=== PATIENT | female | born 1935 | race Caucasian/White ===

== ENCOUNTER 2023-12-07 11:48 | Emergency (ER) | payer OTHER, SELFPAY ==
[2023-12-07 11:52] VITALS: BP 138/101
[2023-12-07 12:31] LABS: % Basophils 0.8 % (0-2); % Eosinophils 3.3 % (0-6); % Immature Granulocytes 0.3 % (0-0.5); % Lymphocytes 16.8 % (20.5-51.1); % Monocytes 11.5 % (1.7-9.3); % Neutrophils 67.3 % (42.2-75.2); Absolute Basophils 0.1 10^3/uL (0-0.2); Absolute Eosinophils 0.3 10^3/uL (0-0.7); Absolute Lymphocytes 1.3 10^3/uL (1.2-3.4); Absolute Monocytes 0.9 10^3/uL (0.1-0.6); Hematocrit 40.4 % (37.0-47.0); Mean Corp Hgb Conc. 32.2 g/dL (33.0-37.0); Mean Corpuscular Hgb 29.6 pg (27.0-31.0); Mean Platelet Volume 10.3 fL (7.4-10.4); Nucleated Red Blood Cells % 0 %; Platelet Count 245 10^3/uL (130-400); Red Blood Cell Count 4.39 10^6/uL (4.20-5.40); Red Cell Dist. Width 15.2 % (11.5-14.5); White Blood Cell Count 7.5 10^3/uL (4.8-10.8)
[2023-12-07 12:44] LABS: ALT (SGPT) 18 U/L (0-35); AST (SGOT) 32 U/L (14-36); Albumin 4.1 g/dl (3.5-5.0); Alkaline Phosphatase 85 U/L (38-126); Blood Urea Nitrogen 23 mg/dl (7-17); Calcium 9.4 mg/dl (8.4-10.2); Carbon Dioxide 31 mmol/L (22-30); Chloride 99 mmol/L (98-107); Glucose 86 mg/dl (70-99); INR 1.26; PT 15.9 Sec (11.4-14.6); Potassium 3.6 mmol/L (3.5-5.1); Sodium 138 mmol/L (135-145); Total Bilirubin 0.7 mg/dl (0.2-1.3); Total Protein 7.5 g/dl (6.3-8.2); eGFR 33.73
[2023-12-07 12:54] LABS: Troponin I < 0.012 ng/ml
[2023-12-07 13:53] VITALS: BMI 28.1
[2023-12-07 13:56] VITALS: BP 188/82
--- NOTE | 2023-12-07 14:00 | ED.GENMED ---
History of Present Illness
General
Chief Complaint: Chest Pain
Source: patient and family
Exam Limitations: none
Time Seen by Provider: 12/07/23 13:53
Travel History
Have you had any contact with someone who has COVID-19?: No
Do you have any symptoms of coronavirus? Fever > 100 degrees, chills, cough, shortness of breath, sore throat, loss of taste or smell, muscle aches, or headache?: No
History of Present Illness
History of Present Illness:
See MDM
Past History
Past History
ED Past Medical History: Arrthythmia (Atrial fibrillation), CAD, HTN, Hypercholesterolemia and Hypothyroidism
ED Past Surgical History: Cardiac (Past cardiac catheterization with no stenting 2000, 2014)
Social History
Tobacco: Non-smoker
Alcohol: None
Drug: None
Personal:
Living: with family
Employment: Retired
Family History
Family History: Other
Phy Exam
Physical Exam
Physical Exam:
See MDM
Scores
Heart Score for Chest Pain Patients
STEMI patient?: No
History: Slightly or Non-Suspicious
ECG: Normal
Age: >/= 65 years
Risk Factors: 1 or 2 Risk Factors
Troponin: </= Normal Limit
Heart Score for Chest Pain Patients: 3
Heart Score Risk: 2.5% MACE over next 6 weeks
Course
Orders/Labs/Results
Orders:
Orders
12/07/23 11:57
Electrocardiogram (*1) Urgent
Reason for Study: Chest Pain
EKG- Treatment ONCE
12/07/23 12:12
Complete Blood Count/With Diff Urgent
Comprehensive Metabolic Panel Urgent
Prothrombin Time Urgent
Troponin I Urgent
12/07/23 13:59
Tramadol HCl [Ultram] 25 mg PO NOW STA
CR Chest - 2 Views Urgent
Comment:
Reason For Exam: CP, SOB
CR Shoulder - Left Min 2 View* Urgent
Reason For Exam: Left shoulder pain
Abnormal Lab Results
12/07/23
12:12
MCHC 32.2 L g/dL
(33.0-37.0)
RDW 15.2 H %
(11.5-14.5)
Absolute Monos (auto) 0.9 H 10^3/uL
(0.1-0.6)
Lymphocytes % 16.8 L %
(20.5-51.1)
Monocytes % 11.5 H %
(1.7-9.3)
PT 15.9 H Sec
(11.4-14.6)
Carbon Dioxide 31 H mmol/L
(22-30)
BUN 23 H mg/dl
(7-17)
Creatinine 1.5 H mg/dL
(0.6-1.0)
12/07/23 12:12
12/07/23 12:12
Vital Signs
Initial and Last Documented VS:
Initial Vital Signs
Temp Pulse Resp BP Pulse Ox
97.8 F 77 18 138/101 96
12/07/23 11:52 12/07/23 11:52 12/07/23 11:52 12/07/23 11:52 12/07/23 11:52
Last Documented Vital Signs
Temp Pulse Resp BP Pulse Ox
97.8 F 70 17 188/82 99
12/07/23 11:52 12/07/23 14:30 12/07/23 14:30 12/07/23 13:56 12/07/23 14:30
MDM/Problems Addressed
Differential Diagnosis Includes:
HPI and MDM Narrative:
88-year-old female presenting with intermittent shortness of breath and chest discomfort since yesterday. Patient noted that her blood pressure was elevated. She localizes her symptoms to her left shoulder. Patient states symptoms are worse with
movement of the shoulder. Patient denies pain with exertion.
On exam, patient is well-appearing nontoxic. Pain is localized to palpation and movement of left deltoid. Will obtain chest x-ray and shoulder x-ray. EKG is unchanged from prior. Given duration of symptoms, troponin is negative indicating ACS
less likely. Will give dose of tramadol and continue to reassess blood pressure and symptoms
Physical exam
General: Well appearing and non-toxic
HEENT: protecting airway
Neck: appears supple
CV: No evidence of cyanosis. Regular rate and rhythm
Resp: No accessory muscle use. Lungs clear
Abd: Non-distended
Extremities: No deformities. Mild tenderness to palpation of left deltoid. Distal extremity neurovascularly intact
Neuro: alert
Psych: Normal affect
Skin: Intact
Problems Addressed including Acute and Chronic Conditions affecting care:
1. Chest pain
Acuity: acute
Prognosis: stable
Details: EKG unchanged from prior. Troponin negative.
2. Shoulder pain
Acuity: acute
Prognosis: stable
Details: likely musculoskeletal. Will obtain x-ray
3. Hypertension
Acuity: acute
Prognosis: stable
Details: Daughter at bedside states that she used to be on Coreg 25 mg twice daily but they switched it all the way down to 6.25 mg twice daily due to symptoms. We discussed increasing to 12.5 at nighttime dosing her blood pressure with PCP and
channel lip stiffener insoles
Updates
After tramadol, patient states she is feeling much better. In regards to her blood pressure, will have her double her Coreg at nighttime until this can be reevaluated by PCP channel lip stiffener insoles. Will ambulate to ensure symptoms are not worse with
exertion. Both patient and daughter feel comfortable going home x-ray independently reviewed:
Differential Diagnosis (but not limited to): Noncardiac chest pain, shoulder strain, pneumothorax
Testing considered:
Drug therapy (if applicable): OTC meds, please see d/c instruction regarding Rx drugs
Amount and/or Complexity of Data Reviewed
Clinical info obtained from: Patient
External data reviewed: N/A
Labs I independently reviewed (but not limited to): Troponin normal
Radiology: X-ray independently reviewed: Chest x-ray unchanged prior. No shoulder fracture or dislocation noted
Pulse Ox: not hypoxic
EKG independently reviewed: Paced rhythm, left axis, no STEMI
Information Clerk: N/A
Critical Care: N/A
Risk of Complication:
Social Determinants of health: Good social support
Discussed with other providers: N/A
Escalation of Care includes Admit/Obs: After being observed in the Emergency Department, pt stable for discharge.
Occasional wrong word or 'sound a like' substitutions may have occurred due to the inherent limitations of voice recognition software. Read the chart carefully and recognize, using context, where substitutions have occurred.
*Critical Care Note
Total Time (30-74mins, 75-104mins- exclusive of procedures): Not Applicable
ED Attending Note
-
Portions of this chart may have been created with voice recognition software.� Occasional wrong word or��sound alike� substitutions may have occurred due to the inherent limitations of voice recognition software.
Discharge Plan
Departure
Patient Disposition: Home (Routine Discharge)
Date of Disposition: 12/07/23
Time of Disposition: 15:48
Patient with high blood pressure during this ER visit?: Yes
Discharge Problem:
Anterior shoulder pain
Instructions: Shoulder Pain ED, BLOOD PRESSURE
Prescriptions:
New
tramadol 50 mg tablet
25 mg PO BID PRN (Reason: pain) Qty: 10 0RF
No Action
pantoprazole 40 MG tablet,delayed release (DR/EC)
40 mg PO DAILY Qty: 30 11RF
atorvastatin 40 MG tablet
40 mg PO HS
acetaminophen [Tylenol Extra Strength] 500 MG tablet
1,000 mg PO Q4HPRN PRN (Reason: mild pain)
apixaban [Eliquis] 2.5 MG tablet
2.5 mg PO BID
amiodarone [Pacerone] 200 MG tablet
400 mg PO DAILY
levothyroxine 50 MCG tablet
50 mcg PO DAILY
calcitriol [Rocaltrol] 0.5 MCG capsule
0.5 mcg PO DAILY
carvedilol [Coreg] 25 MG tablet
25 mg PO BID Qty: 0 0RF
furosemide 20 MG tablet
40 mg PO BID Qty: 0 0RF
Referrals:
Alesha Fuentes MD [Family Provider] -
Activity Restrictions/Additional Instructions:
Please return for any worsening symptoms.
You may return at any time if you have further concerns.
Please follow up with your primary care doctor at the first available appointment, preferably this week. Please discus your symptoms and your uncontrolled blood pressure. Until you are further evaluated by your doctor, please double your Coreg at
nighttime. If you develop weakness and dizziness due to increased blood pressure medicine, please go back to your original dosing.
You were given a prescription for narcotics. If you require this pain medicine, please take a daily [id number] stool softener to avoid constipation.
Thank you for choosing [facility].
Interventions
Interventions:
*Risk Screen - Suicide Last Done: 12/07/23 11:52
*General Assessment Last Done: 12/07/23 11:52
*Neglect/Abuse Screening Last Done: 12/07/23 11:52
ED- Fall Risk Assessment Last Done: 12/07/23 13:57
*ED COVID-19 Vaccine History Last Done: 12/07/23 13:50
ED- Cardiac Assessment Last Done: 12/07/23 13:57
ED- Neurological Assessment Last Done: 12/07/23 13:57
ED- Pulmonary Assessment Last Done: 12/07/23 13:57
[2023-12-07] MEDS: ULTRAM 25 MG PO (14:04)
== END 2023-12-07 16:30 | disposition home or self-care (01) ==
LOC: EMR 11:48
PROVIDERS: Emergency Medicine; EMERGENCY PHYSICIAN Student in an Organized Health Care Education/Training Program; FAMILY PHYSICIAN Internal Medicine
DX: M25.512 Pain in left shoulder (principal); R07.89 Other chest pain; I48.91 Unspecified atrial fibrillation; I25.10 Atherosclerotic heart disease of native coronary artery without angina pectoris; I10 Essential (primary) hypertension; E78.00 Pure hypercholesterolemia, unspecified; E03.9 Hypothyroidism, unspecified
CPT/HCPCS: 99283; 71046; 73030; 80053; 84484; 85025; 85610; 93005

== ENCOUNTER 2024-04-26 10:42 | Day surgery (SDC) | payer OTHER, SELFPAY ==
[2024-04-26 11:34] VITALS: BMI 27.2
[2024-04-26 11:44] VITALS: BP 172/96
[2024-04-26 11:44] LABS: Hematocrit 38.4 % (37.0-47.0); Hemoglobin 12.8 g/dL (12.0-16.0); Mean Corp Hgb Conc. 33.3 g/dL (33.0-37.0); Mean Corpuscular Hgb 29.9 pg (27.0-31.0); Mean Corpuscular Volume 89.7 fL (81.0-99.0); Platelet Count 171 10^3/uL (130-400); Red Blood Cell Count 4.28 10^6/uL (4.20-5.40); Red Cell Dist. Width 15.3 % (11.5-14.5); White Blood Cell Count 6.9 10^3/uL (4.8-10.8)
--- NOTE | 2024-04-26 11:44 | W.ICD.CONTRA ---
Post ICD/TECHNICAL CABLE JOINTER-D
-
History of AL?: Yes
LV Function
Left ventricular function study result?: Ejection Fraction >/= 40%
ACEI/ARB/ARNI
Patient already on ACEI/ARB/ARNI: No
ACEI/ARB/ARNI Contraindication: Hypotension
ACEI/ARB/ARNI Not Indicated: Left Ventricular EF >/= 40%
Beta-Carol
Patient already on Beta Carol: Yes
[2024-04-26 11:45] VITALS: BP 172/96
[2024-04-26 11:56] LABS: ALT (SGPT) 16 U/L (0-35); AST (SGOT) 33 U/L (14-36); Albumin 4.1 g/dl (3.5-5.0); Alkaline Phosphatase 91 U/L (38-126); Blood Urea Nitrogen 37 mg/dl (7-17); Calcium 9.5 mg/dl (8.4-10.2); Carbon Dioxide 30 mmol/L (22-30); Chloride 102 mmol/L (98-107); Estimated Creatinine Clearance 24 ml/min; Glucose 93 mg/dl (70-99); Sodium 140 mmol/L (135-145); Total Bilirubin 0.8 mg/dl (0.2-1.3); eGFR 36.64
--- NOTE | 2024-04-26 12:59 | ITS.CL.ICD ---
[employer] - ICD
Implantable Cardioverter Defibrillator
Procedure Report:
Date of Procedure: April 26, 2024
Patient : 1935
Procedures: BiV ICD generator change
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
�
Implants:�
Pulse Generator: Medtronic; Model# DTPA 2 QQ; Serial#�[id number]
Atrial Lead: Medtronic: Model# 5076; Serial# [id number] implanted 2016
Right Ventricular Lead: Medtronic; Model# 6935; Serial# [id number] implanted 2016
Left Ventricular Lead: Medtronic; Model# 4298; Serial# [id number] implanted 2016
�
Explants:
Medtronic product number DTM A1 q. q. serial number [id number] implanted 2016
�
Technique: The patient was prepped and draped in the usual fashion. Local anesthetic was applied to the left prepectoral subcutaneous tissue. A 4 inch incision was made over the chronic incision. The leads were appropriately removed from the device
and the patient is without underlying rhythm.. The pocket was irrigated with antibiotic solution. The chronic leads were attached to the new generator and the chronic generator was removed from the field.. The incision was closed with absorbable
sutures. The estimated blood loss was minimal. There were no complications. Device based testing was performed as described below. IV contrast total:
�
System Analysis:
RA lead: P: 2.6 mV; Threshold: Underlying atrial flutter programmed VVIR; Impedance: 437 ohms.
RV lead: R: 0 mV; Threshold: 1.0 V @ 0.5 ms; Impedance: 418 ohms.
LV lead: R: 0 mV; Threshold: 1.25 V @ 0.5 ms; Impedance: 665 ohms.
�
Final Programming: Tachy: VT/VF:188; Raúl: VVIR 60-120
�
Conclusion: Uncomplicated Biventricular ICD generator change
�
Recommendation: Routine post BiV ICD care.
�
cc: Dr. Haroon Villalobos
�
[2024-04-26 13:13] VITALS: BP 128/70
[2024-04-26 13:27] VITALS: BP 135/67
[2024-04-26 13:43] VITALS: BP 156/70
[2024-04-26 13:58] VITALS: BP 95/73
== END 2024-04-26 14:15 | disposition home or self-care (01) ==
LOC: CATH 10:42
PROVIDERS: ATTENDING PHYSICIAN Internal Medicine Cardiovascular Disease; FAMILY PHYSICIAN Internal Medicine; OTHER PHYSICIAN Internal Medicine Cardiovascular Disease
DX: Z45.02 Encounter for adjustment and management of automatic implantable cardiac defibrillator (principal); I50.9 Heart failure, unspecified; I25.10 Atherosclerotic heart disease of native coronary artery without angina pectoris; I10 Essential (primary) hypertension; E78.00 Pure hypercholesterolemia, unspecified; E03.9 Hypothyroidism, unspecified; Z79.01 Long term (current) use of anticoagulants; Z79.890 Hormone replacement therapy
CPT/HCPCS: 33264; 80053; 85027; C1882

== ENCOUNTER 2024-11-23 09:24 | Emergency (ER) | payer OTHER, SELFPAY ==
[2024-11-23 09:37] VITALS: BP 149/83
--- NOTE | 2024-11-23 11:15 | ED.GENMED ---
History of Present Illness
General
Chief Complaint: Fall
Time Seen by Provider: 11/23/24 10:38
History of Present Illness
History of Present Illness:
89-year-old female presents after a fall. She does take blood thinners due to A-fib. States she was getting out of bed for an early doctor's appointment when she lost her balance and fell backward, did strike her head. She feels well with only
mild headache at this time. She did make her scheduled nephrology appointment but was encouraged to seek ED evaluation
Past History
Past History
ED Past Medical History: Arrthythmia (Atrial fibrillation), CAD, HTN, Hypercholesterolemia and Hypothyroidism
ED Past Surgical History: Cardiac (Past cardiac catheterization with no stenting 2000, 2014)
Social History
Tobacco: Non-smoker
Alcohol: None
Drug: None
Personal:
Living: with family
Employment: Retired
Family History
Family History: Other
Review of Systems
Review of Systems
Allergies reviewed?: Yes
All Other Systems: ROS reviewed and negative except as documented in HPI and ROS
Phy Exam
Physical Exam
Physical Exam:
GEN: Well appearing, NAD, WDWN
HEENT: Normocephalic, no open wounds, oral mucosa moist, no scleral icterus, no nasal congestion
Cardiac: Regular rate
Lung: No respiratory distress, no tachypnea
MSK: No gross deformity or injuries. No focal tenderness to bilateral pelvis
Skin: Good color, no pallor or jaundice, no rashes
Neuro: AO x3; CN II-XII grossly intact. BUE strength 5/5 in all crowder, sensation intact and symmetric. BLE strength 5/5 in all crowder, sensation intact and symmetric
Psych: Calm, cooperative
Course
Orders/Labs/Results
Orders:
Orders
11/23/24 09:41
CT Head W/o Iv Contrast Urgent
Comment: on eliquis
Reason For Exam: fall, posterior head strike
Cervical Spine wo Contrast CT [CT Cervical Spine W/o Iv Contr] Urgent
Comment:
Reason For Exam: fall, headache, head strike
Vital Signs
Initial and Last Documented VS:
Initial Vital Signs
Temp Pulse Resp BP Pulse Ox
97.8 F 73 20 149/83 98
11/23/24 09:37 11/23/24 09:37 11/23/24 09:37 11/23/24 09:37 11/23/24 09:37
Last Documented Vital Signs
Temp Pulse Resp BP Pulse Ox
97.8 F 77 16 138/79 98
11/23/24 09:37 11/23/24 11:36 11/23/24 11:36 11/23/24 11:36 11/23/24 11:36
MDM/Problems Addressed
MDM/Problems Addressed:
Imaging unremarkable, no evidence of other musculoskeletal injuries
*Critical Care Note
Total Time (30-74mins, 75-104mins- exclusive of procedures): Not Applicable
ED Attending Note
-
Portions of this chart may have been created with voice recognition software.� Occasional wrong word or��sound alike� substitutions may have occurred due to the inherent limitations of voice recognition software.
Discharge Plan
Departure
Patient Disposition: Home (Routine Discharge)
Date of Disposition: 11/23/24
Time of Disposition: 11:16
Patient with high blood pressure during this ER visit?: No
Discharge Problem:
Fall from ground level, Closed head injury
Instructions: Preventing falls in adults
Prescriptions:
No Action
pantoprazole 40 MG tablet,delayed release (DR/EC)
40 mg PO DAILY Qty: 30 11RF
atorvastatin 40 MG tablet
40 mg PO HS
acetaminophen [Tylenol Extra Strength] 500 MG tablet
1,000 mg PO Q4HPRN PRN (Reason: mild pain)
Eliquis 2.5 MG tablet
2.5 mg PO BID
levothyroxine 50 MCG tablet
50 mcg PO DAILY
calcitriol [Rocaltrol] 0.5 MCG capsule
0.5 mcg PO DAILY
furosemide 20 MG tablet
40 mg PO BID Qty: 0 0RF
tramadol 50 mg tablet
25 mg PO BID PRN (Reason: pain) Qty: 10 0RF
carvedilol [Coreg] 12.5 mg Tablet
12.5 mg PO QHS
carvedilol [Coreg] 25 MG tablet
6.25 mg PO DAILY
potassium chloride [Klor-Con M20] 20 mEq Tablet,Er Particles/Crystals
20 meq PO DAILY
Referrals:
Alesha Fuentes MD [Family Provider] -
Interventions
Interventions:
*Risk Screen - Suicide Last Done: 11/23/24 09:39
*General Assessment Last Done: 11/23/24 10:58
*Neglect/Abuse Screening Last Done: 11/23/24 10:58
ED- Fall Risk Assessment Last Done: 11/23/24 11:36
*ED COVID-19 Vaccine History Last Done: 11/23/24 10:58
*Nursing Disposition Last Done: 11/23/24 11:37
ED-Musculoskeletal Assessment Last Done: 11/23/24 10:58
ED- Neurological Assessment Last Done: 11/23/24 10:57
ED-Skin Assessment Last Done: 11/23/24 10:58
Discharge Date and Time
Discharge Date/Time: 11/23/24 11:38
Print Language: ICELANDIC
[2024-11-23 11:36] VITALS: BP 138/79
== END 2024-11-23 11:38 | disposition home or self-care (01) ==
LOC: EMR 09:24
PROVIDERS: EMERGENCY PHYSICIAN Emergency Medicine; FAMILY PHYSICIAN Internal Medicine
DX: S09.90XA Unspecified injury of head, initial encounter (principal); W18.30XA Fall on same level, unspecified, initial encounter; I48.91 Unspecified atrial fibrillation; I25.10 Atherosclerotic heart disease of native coronary artery without angina pectoris; E03.9 Hypothyroidism, unspecified; E78.00 Pure hypercholesterolemia, unspecified; I10 Essential (primary) hypertension; Z79.01 Long term (current) use of anticoagulants
CPT/HCPCS: 99284; 70450; 72125

== ENCOUNTER → 2024-12-10 14:15 | Outpatient (REF) | payer OTHER, SELFPAY | LOC: RAD 14:15 | PROVIDERS: ATTENDING PHYSICIAN Internal Medicine | DX: R26.89 Other abnormalities of gait and mobility (principal) | CPT/HCPCS: 93880 ==

== ENCOUNTER → 2025-01-22 09:24 | Outpatient (REF) | payer OTHER, SELFPAY | LOC: RCS 09:24 | PROVIDERS: ATTENDING PHYSICIAN Internal Medicine Cardiovascular Disease; FAMILY PHYSICIAN Internal Medicine | DX: I25.5 Ischemic cardiomyopathy (principal) | CPT/HCPCS: 93306 ==

== ENCOUNTER → 2025-06-05 13:01 | Outpatient (REF) | payer OTHER, SELFPAY | LOC: HWRAD 13:01 | PROVIDERS: ATTENDING PHYSICIAN Internal Medicine | DX: N93.9 Abnormal uterine and vaginal bleeding, unspecified (principal) | CPT/HCPCS: 76830; 76856 ==

== ENCOUNTER 2025-07-12 13:51 | Emergency (ER) | payer OTHER, SELFPAY ==
[2025-07-12] VITALS (8 sets, daily range): BP systolic 68–172; BP diastolic 51–108
[2025-07-12 14:19] LABS: Hematocrit 38.3 % (37.0-47.0); Hemoglobin 12.4 g/dL (12.0-16.0); Mean Corp Hgb Conc. 32.4 g/dL (33.0-37.0); Mean Corpuscular Volume 90.8 fL (81.0-99.0); Nucleated Red Blood Cells % 0 %; Platelet Count 193 10^3/uL (130-400); Red Cell Dist. Width 14.6 % (11.5-14.5)
[2025-07-12 14:46] LABS: ALT (SGPT) 14 U/L (0-35); AST (SGOT) 23 U/L (14-36); Albumin 3.8 g/dl (3.5-5.0); Alkaline Phosphatase 86 U/L (38-126); Blood Urea Nitrogen 30 mg/dl (7-17); Calcium 9.4 mg/dl (8.4-10.2); Carbon Dioxide 33 mmol/L (22-30); Chloride 100 mmol/L (98-107); Glucose 111 mg/dl (70-99); Potassium 3.8 mmol/L (3.5-5.1); Sodium 137 mmol/L (135-145); Total Protein 6.6 g/dl (6.3-8.2); eGFR 36.41
--- NOTE | 2025-07-12 15:02 | ED.GENMED ---
History of Present Illness
General
Chief Complaint: Dizziness
Time Seen by Provider: 07/12/25 15:02
History of Present Illness
History of Present Illness:
FOCUSED PAST MEDICAL HISTORY
- Russell-michelle chavez Eliquis
REVIEW OF OLD RECORDS
- The patient was seen here with a head injury in November 2024
Note:
CHIEF COMPLAINT(S)
Dizziness and brief episodes of unresponsiveness.
HISTORY OF PRESENT ILLNESS
The patient is an 89-year-old female with a notable medical history, presenting with episodes of dizziness and brief unresponsiveness occurring over the past two weeks. According to her daughter, with whom she resides, the patient experiences
dizziness upon standing. These episodes have resulted in her having a blank stare for approximately two minutes, which occurred once last night and once again this morning. The daughter also mentioned that the patient has a longstanding history of
knee issues, described as 'bone on bone,' leading to falls. The patient appears to be well hydrated as efforts are made to ensure adequate fluid intake. There were no additional neurological concerns such as weakness on one side of the body or
speech difficulties reported.
ADDITIONAL HISTORY OBTAINED FROM SOURCES OTHER THAN THE PATIENT
Per the patients daughter, these episodes of dizziness typically occur when the patient stands up. She also confirmed the brief episodes of unresponsiveness lasted a couple of minutes, with the latest one happening last night followed by another
similar event this morning.
CHRONIC MEDICAL CONDITIONS SIGNIFICANTLY AFFECTING CARE
The patient has been diagnosed with endometrial cancer, confirmed by biopsy. She is scheduled for follow-up at [facility] for further evaluation, but no treatment plan has been initiated yet.
PHYSICAL EXAM
General: Alert, no acute distress.
Skin: Warm, dry.
Head: Normocephalic, atraumatic.
Neck: Supple, trachea midline.
Eye, Ears, Nose, Mouth and Throat: Oral mucosa moist.
Cardiovascular: Normal peripheral perfusion, no edema. Slightly irregular rhythm
Respiratory: Respirations are non-labored. Breath sounds are clear and equal
Gastrointestinal: Abdomen nondistended.
Musculoskeletal: Chronic appearing deformity to both knees with decreased active range of motion of both knees, decreased active range of motion at the right shoulder�all of these are chronic findings
Neurological: Alert and oriented to person, place, time, and situation, no focal neurological deficit observed. Fair strength in all extremities. No focal findings.
Psychiatric: Cooperative, appropriate mood & affect.
PLAN
Arranged for a computed tomography (CT) scan of the brain to evaluate for potential causes of the patients symptoms, including the possibility of metastatic disease given her underlying cancer diagnosis.
DIFFERENTIAL DIAGNOSIS
The Differential Diagnosis includes, in no particular order and is not limited to:
1. Orthostatic hypotension
2. Transient Ischemic Attack (TIA)
3. Dehydration
4. Syncope
5. Cardiac arrhythmia
6. Stroke
7. Medication side effects
8. Vestibular dysfunction
9. Anemia
10. Metastatic disease to the brain
RADIOLOGY
- CT head obtained�no acute abnormality
EKG
- V paced 84
LABS
- White count and hemoglobin are normal, bicarb 33, BUN 30, creatinine 1.4, GFR 36�renal function is near baseline
UPDATE
- I reviewed the [employer] interrogation report, since 05/27/2025 there have been no episodes of VT, VF, AT, AF, SVT. She has predominantly been ventricular paced.
Discussed with Dr. Madrigal -we agree that there is no clear indication for admission to the hospital. Carotid ultrasound obtained after I briefly discussed with Dr. King.
SUMMARY OF ENCOUNTER
The patient, an 89-year-old female, presented to the emergency department with episodes of dizziness and brief periods of unresponsiveness over the last two weeks. These episodes prompted concerns about possible transient ischemic attacks or
arrhythmias. A CT scan of the brain showed no acute intracranial abnormalities, such as bleeding or masses. The patients pacemaker was interrogated, showing no episodes of arrhythmia, thus reducing the likelihood of rhythm-related issues. Despite
considerations for further hospitalization for monitoring, it was discussed that admission might not significantly alter management or outcomes. Options such as carotid artery ultrasound were considered as a non-contrast alternative to evaluate
blood flow without compromising kidney function.
PLAN
Discussed the potential risk and benefits of further hospital observation versus discharge. Despite no alarming findings, continuous outpatient care with strong follow-up is advised. Carotid artery ultrasound was considered, which shows no
significant stenosis
INDEPENDENT REVIEW OF LABS AND INTERPRETATION OF TESTS
No significant changes observed in blood work suggesting dehydration or other acute abnormalities. My independent CT scan interpretation aligns with findings of no bleeding or acute intracranial process.
PATIENT EDUCATION AND COUNSELING
The patient and daughter were educated on the risks and benefits of potential hospital observation versus home care. Emphasized the importance of fall precautions and monitoring blood pressure as episodes may relate to orthostatic changes. Discussed
the possible mini-stroke episodes and the importance of close follow-up.
FOLLOW-UP INSTRUCTIONS
Patient advised to schedule a follow-up visit with her primary care physician to reevaluate her symptoms and discuss potential further testing, including a carotid ultrasound. Monitor for any worsening symptoms or additional episodes of dizziness or
unresponsiveness, which would necessitate immediate medical attention.
MEDICAL DECISION MAKING
-Complexity of Data Reviewed: Chronic conditions affecting care including endometrial cancer, knee issues, orthostatic hypotension, and a notable history of falls. Differential diagnosis includes orthostatic hypotension, transient ischemic attack
(TIA), dehydration, syncopal events, cardiac arrhythmia, stroke, medication side effects, vestibular dysfunction, anemia, and potential metastatic disease to the brain.
-Data:
Category 1:
Non-emergency department records reviewed. Clinical information was obtained from the patients daughter who confirmed symptom details.
Category 2:
My independent interpretation of the CT scan showed no acute intracranial findings.
Category 3:
Discussion of management with the care team regarding the potential need for observation and alternative testing, such as carotid ultrasound.
-Risk:
Consideration of Admission/Observation: Escalation of care, including admission/observation, was considered given the complexity and risk of the patients presenting complaint, exam findings, and comorbidities. However, ultimately, it was determined
the patient is safe for outpatient management with close follow-up as work-up is reassuring and the patient is reliable for follow-up.
DIAGNOSIS
- Dizziness (R42)
- Syncope and collapse (R55)
- Unspecified lack of coordination (R27.9)
- Orthostatic hypotension (I95.1)
- Transient ischemic attack (G45.9)
I discussed with neurology who recommended checking orthostatics and her blood pressure did drop her heart rate may have same. I recommended that she stop the evening dose of Coreg. I also communicated with Dr. Matos to try to expedite
outpatient follow-up.
Past History
Past History
ED Past Medical History: Arrthythmia (Atrial fibrillation), CAD, HTN, Hypercholesterolemia and Hypothyroidism
ED Past Surgical History: Cardiac (Past cardiac catheterization with no stenting 2000, 2014)
Social History
Tobacco: Non-smoker
Alcohol: None
Drug: None
Personal:
Living: with family
Employment: Retired
Family History
Family History: Other
Phy Exam
Physical Exam
Physical Exam:
See HPI
Course
Orders/Labs/Results
Orders:
Orders
07/12/25 13:56
Electrocardiogram (*1) Urgent
Reason for Study: Chest Pain
EKG- Treatment ONCE
07/12/25 14:11
Complete Blood Count/With Diff Urgent
Comprehensive Metabolic Panel Urgent
07/12/25 15:09
CT Head W/o Iv Contrast Urgent
Comment:
Reason For Exam: periods of unresponsiveness
07/12/25 16:26
US Carotid [US Cerebrovascular] Urgent
Comment:
Reason For Exam: periods of unresponsiveness, borderline abnl carot
Abnormal Lab Results
07/12/25
14:11
MCHC 32.4 L g/dL
(33.0-37.0)
RDW 14.6 H %
(11.5-14.5)
Absolute Lymphs (auto) 1.1 L 10^3/uL
(1.2-3.4)
Absolute Monos (auto) 0.9 H 10^3/uL
(0.1-0.6)
Lymphocytes % 13.7 L %
(20.5-51.1)
Monocytes % 10.4 H %
(1.7-9.3)
Carbon Dioxide 33 H mmol/L
(22-30)
BUN 30 H mg/dl
(7-17)
Creatinine 1.4 H mg/dL
(0.6-1.0)
Glucose 111 H mg/dl
(70-99)
07/12/25 14:11
07/12/25 14:11
Vital Signs
Initial and Last Documented VS:
Initial Vital Signs
Temp Pulse Resp BP Pulse Ox
36.8 C 78 18 141/79 98
07/12/25 13:53 07/12/25 13:53 07/12/25 13:53 07/12/25 13:53 07/12/25 13:53
Last Documented Vital Signs
Temp Pulse Resp BP Pulse Ox
36.8 C 79 14 76/51 98
07/12/25 13:53 07/12/25 19:30 07/12/25 19:15 07/12/25 19:29 07/12/25 18:53
*Pulse Oximetry
SaO2: 98
Oxygen Mode of Delivery: Room air
Patient hypoxic: no
*Critical Care Note
Total Time (30-74mins, 75-104mins- exclusive of procedures): Not Applicable
ED Attending Note
-
Portions of this chart may have been created with voice recognition software.� Occasional wrong word or��sound alike� substitutions may have occurred due to the inherent limitations of voice recognition software.
Discharge Plan
Departure
Prescriptions:
No Action
pantoprazole 40 MG tablet,delayed release (DR/EC)
40 mg PO DAILY Qty: 30 11RF
atorvastatin 40 MG tablet
40 mg PO HS
acetaminophen [Tylenol Extra Strength] 500 MG tablet
1,000 mg PO Q4HPRN PRN (Reason: mild pain)
Eliquis 2.5 MG tablet
2.5 mg PO BID
levothyroxine 50 MCG tablet
50 mcg PO DAILY
calcitriol [Rocaltrol] 0.5 MCG capsule
0.5 mcg PO DAILY
furosemide 20 MG tablet
40 mg PO BID Qty: 0 0RF
tramadol 50 mg tablet
25 mg PO BID PRN (Reason: pain) Qty: 10 0RF
carvedilol [Coreg] 12.5 mg Tablet
12.5 mg PO QHS
carvedilol [Coreg] 25 MG tablet
6.25 mg PO DAILY
potassium chloride [Klor-Con M20] 20 mEq Tablet,Er Particles/Crystals
20 meq PO DAILY
Referrals:
Alesha Fuentes MD [Family Provider, Internal Medicine]
Interventions
Interventions:
*Risk Screen - Suicide Last Done: 07/12/25 13:53
*General Assessment Last Done: 07/12/25 15:19
*Neglect/Abuse Screening Last Done: 07/12/25 15:19
*ED- Fall Risk Assessment Last Done: 07/12/25 15:19
*ED COVID-19 Vaccine History Last Done: 07/12/25 15:04
*ED Influenza Vaccine History Last Done: 07/12/25 15:19
ED- Neurological Assessment Last Done: 07/12/25 15:19
Discharge Date and Time
Print Language: UKRAINIAN
== END 2025-07-12 20:00 | disposition home or self-care (01) ==
LOC: EMR 13:51
PROVIDERS: Emergency Medicine; EMERGENCY PHYSICIAN Emergency Medicine; FAMILY PHYSICIAN Internal Medicine
DX: R42 Dizziness and giddiness (principal); C54.1 Malignant neoplasm of endometrium; I25.10 Atherosclerotic heart disease of native coronary artery without angina pectoris; I48.91 Unspecified atrial fibrillation; I10 Essential (primary) hypertension; E78.00 Pure hypercholesterolemia, unspecified; E03.9 Hypothyroidism, unspecified; Z79.01 Long term (current) use of anticoagulants; Z95.0 Presence of cardiac pacemaker
CPT/HCPCS: 99284; 93288; 70450; 80053; 85025; 93005; 93880